=== PATIENT | female | born 1945 | race Caucasian/White ===

== ENCOUNTER 2018-12-08 08:58 | Outpatient (CLI) | payer MEDICARE, OTHER ==
[~2018-12-08] VITALS: Ht 162.6 cm; Wt 78.9 kg
[~2018-12-08 08:58] MED LIST: ALIR75PE INJ; FURO-150 PO; GEMF600T5 PO; HYDR-3972 PO; INSU500I SQ; INSU500V SQ; ISOS30TA9 PO; LEVO137T24 PO; LISI-600 PO; LOP25T PO; LORA1TAB PO; MULT-1179 PO; NITR0.4T51 SL; ONDA4TAB11 PO; PRAS10TA6 PO; PROB500T34 PO
[2018-12-08] MEDS ORDERED: metoprolol tartrate 1mg/ml inj IV PRN (10:20)
[2018-12-08] MEDS ORDERED: normal saline 500ml IV soln 500 ML IV ONE (10:20)
[2018-12-08] MEDS ORDERED: atropine 0.1mg/ml 10ml syringe IV PRN (10:20)
[2018-12-08] MEDS ORDERED: regadenoson 0.4mg/5ml syringe IV ONE (10:20)
[2018-12-08] MEDS ORDERED: aminophylline 250mg/10ml inj. IV PRN (10:20)
[2018-12-08] MEDS ORDERED: nitroGLYCERIN 0.4mg SUBLingual tab SL PRN (10:20)
[2018-12-08 11:16] VITALS: BP 138/69
[2018-12-08 11:23] VITALS: BP 142/65
[2018-12-08 11:24] VITALS: BP 157/64
[2018-12-08 11:25] VITALS: BP 147/66
[2018-12-08 11:26] VITALS: BP 166/66
[2018-12-08 11:27] VITALS: BP 166/55
== END 2018-12-08 23:59 | disposition home or self-care (01) ==
LOC: RAD 08:58
PROVIDERS: ATTEND Internal Medicine Cardiovascular Disease
DX: I25.810 Atherosclerosis of coronary artery bypass graft(s) without angina pectoris (principal); I10 Essential (primary) hypertension; J44.9 Chronic obstructive pulmonary disease, unspecified; E11.9 Type 2 diabetes mellitus without complications; Z95.1 Presence of aortocoronary bypass graft
CPT/HCPCS: 78452; 82948; 93017; A9500; J2785; J7040

== ENCOUNTER 2019-02-26 11:19 | Emergency (ER) | payer MEDICARE, OTHER ==
[~2019-02-26] VITALS: Ht 160 cm; Wt 77.7 kg
[2019-02-26 13:57] LABS: CLARITY,URINE CLOUDY (Clear); COLOR,URINE STRAW (Yellow); GLUCOSE, URINE 500 mg/dl (Neg); KETONES,URINE NEGATIVE (Neg); LEUKOCYTE ESTERASE ,URINE NEGATIVE (Neg); NITRITES, URINE NEGATIVE (Neg); OCCULT BLOOD,URINE SMALL (Neg); PH,URINE 5.5 (4.8-8.0); PROTEIN,URINE >=300 mg/dl (Neg); UROBILINOGEN,URINE 0.2 E.U/dL (0.2-1.0)
[2019-02-26] MEDS ORDERED: proCHLORperazine 10 MG/2 ml inj IV ONE (14:00)
[2019-02-26 14:03] LABS: UA COLLECTION TYPE CLN CATCH MIDSTREAM
[2019-02-26 14:04] LABS: BACTERIA,URINE FEW /HPF (Neg); HYALINE CASTS 0-3 /LPF (NEGATIVE); MUCUS STRANDS FEW /LPF (Neg); RBC,URINE 0-2 /HPF (0-2); RENAL CELLS, URINE FEW /HPF; SQUAMOUS EPITHELIAL CELL,UR MANY /LPF (FEW); WBC,URINE 0-4 /HPF (0-4)
[2019-02-26 14:30] LABS: BASOPHILS % (AUTO) 0.5 % (0-1); EOSINOPHILS % (AUTO) 0.6 % (0-6); HEMATOCRIT 37.8 % (35.0-45.0); HEMOGLOBIN 12.9 g/dl (12.0-16.0); LYMPHOCYTES # (AUTO) 2.3 X10'3 (1.1-4.8); LYMPHOCYTES % (AUTO) 28.2 % (21-51); MEAN CORPUSCULAR HEMOGLOBIN 31.5 PG (27.0-31.0); MEAN CORPUSCULAR HGB CONC 34.1 g/dL (33.0-36.5); MEAN CORPUSCULAR VOLUME 92.5 FL (78-98); MEAN PLATELET VOLUME 9.4 FL (7.4-10.4); MONOCYTES # (AUTO) 0.6 X10'3 (0-0.9); MONOCYTES % (AUTO) 7.4 % (2-12); NEUTROPHILS # (AUTO) 5.1 X10'3 (1.8-7.7); NEUTROPHILS % (AUTO) 63.3 % (42-75); PLATELET COUNT 257 X10'3 (140-440); RED BLOOD COUNT 4.09 X10'6 (4.20-5.60); RED CELL DISTRIBUTION WIDTH 14.2 % (11.5-14.5)
--- NOTE | 2019-02-26 14:30 | NUR ---
report off to zeferino rn for my lunch break; infomred patient is ready for discharge
[2019-02-26 14:48] LABS: ALANINE AMINOTRANSFERASE 17 U/L (12-78); ALBUMIN 3.2 G/DL (3.4-5.0); ALBUMIN/GLOBULIN RATIO 0.7 (1.1-1.5); ALKALINE PHOSPHATASE 109 IU/L (46-116); ANION GAP 9 (8-16); ASPARTATE AMINO TRANSFERASE 14 U/L (10-37); BILIRUBIN,TOTAL 0.2 MG/DL (0.1-1.0); BLOOD UREA NITROGEN 30 MG/DL (7-18); BUN/CREATININE RATIO 22.9 (6.6-38.0); CALCIUM 9.1 MG/DL (8.5-10.1); CHLORIDE 106 MMOL/L (99-107); CREATININE 1.31 MG/DL (0.40-0.90); GLUCOSE 270 MG/DL (70-104); POTASSIUM 4.2 MMOL/L (3.5-5.1); SODIUM 140 MMOL/L (135-145); TOTAL CARBON DIOXIDE 24.6 MMOL/L (24-32); TOTAL PROTEIN 7.8 G/DL (6.4-8.2); eGFR 40 ML/MIN
[2019-02-26 14:51] LABS: TROPONIN I < 0.04 NG/ML (0.0-0.05)
[2019-02-26 17:05] VITALS: BP 148/83
== END 2019-02-26 17:07 | disposition home or self-care (01) ==
LOC: ER 11:20
DX: R11.0 Nausea (principal); T36.8X5A Adverse effect of other systemic antibiotics, initial encounter; I25.10 Atherosclerotic heart disease of native coronary artery without angina pectoris; E78.00 Pure hypercholesterolemia, unspecified; I25.2 Old myocardial infarction; E05.90 Thyrotoxicosis, unspecified without thyrotoxic crisis or storm; G89.29 Other chronic pain; M10.9 Gout, unspecified; E11.42 Type 2 diabetes mellitus with diabetic polyneuropathy; Z86.73 Personal history of transient ischemic attack (TIA), and cerebral infarction without residual deficits; Z86.14 Personal history of Methicillin resistant Staphylococcus aureus infection; Z90.49 Acquired absence of other specified parts of digestive tract; Z95.1 Presence of aortocoronary bypass graft; Z90.710 Acquired absence of both cervix and uterus; Z88.0 Allergy status to penicillin; Z88.5 Allergy status to narcotic agent; Z88.1 Allergy status to other antibiotic agents; Z79.4 Long term (current) use of insulin; Z79.899 Other long term (current) drug therapy; Y92.9 Unspecified place or not applicable
CPT/HCPCS: 36415; 80053; 81001; 82948; 84484; 85025; 93005; 96374; 99284; J0780

== ENCOUNTER 2021-08-14 10:50 | Emergency (ER) | payer MEDICARE, OTHER ==
[~2021-08-14] VITALS: Ht 160 cm; Wt 82.3 kg
[~2021-08-14 10:50] MED LIST changes: -ALIR75PE INJ; +ASPI-1 PO; +CLOP75TA9 PO; +EMPA10TA PO; +ERGO50002 PO; -FURO-150 PO; -GEMF600T5 PO; +GEMF600T90 PO; +INSU100I40 SQ; -INSU500I SQ; -INSU500V SQ; +ISOS30TA84 PO; -ISOS30TA9 PO; -LISI-600 PO; +LISI20TA28 PO; -LOP25T PO; -LORA1TAB PO; +METO-539 PO; +OMEG1CAP61 PO; -ONDA4TAB11 PO; -PRAS10TA6 PO; -PROB500T34 PO
[2021-08-14 11:11] LABS: BASOPHILS # (AUTO) 0.1 X10'3 (0-0.2); BASOPHILS % (AUTO) 0.6 % (0-1); EOSINOPHILS # (AUTO) 0.1 X10'3 (0-0.9); EOSINOPHILS % (AUTO) 1.2 % (0-6); HEMATOCRIT 39.9 % (35.0-45.0); HEMOGLOBIN 13.1 g/dl (12.0-16.0); LYMPHOCYTES # (AUTO) 3.1 X10'3 (1.1-4.8); LYMPHOCYTES % (AUTO) 33.6 % (21-51); MEAN CORPUSCULAR HEMOGLOBIN 28.7 PG (27.0-31.0); MEAN CORPUSCULAR HGB CONC 32.8 g/dL (33.0-36.5); MEAN CORPUSCULAR VOLUME 87.5 FL (78-98); MEAN PLATELET VOLUME 8.9 FL (7.4-10.4); MONOCYTES # (AUTO) 0.8 X10'3 (0-0.9); MONOCYTES % (AUTO) 8.3 % (2-12); NEUTROPHILS # (AUTO) 5.3 X10'3 (1.8-7.7); NEUTROPHILS % (AUTO) 56.3 % (42-75); PLATELET COUNT 382 X10'3 (140-440); RED BLOOD COUNT 4.56 X10'6 (4.20-5.60); RED CELL DISTRIBUTION WIDTH 15.6 % (11.5-14.5); WHITE BLOOD COUNT 9.3 X10'3 (4.5-11.0)
[2021-08-14] MEDS ORDERED: fentaNYL/PF 50MCG/1 ML 2ML syringe IV ONE (11:15)
[2021-08-14] MEDS ORDERED: amiodarone 150mg/dext, iso-os 100 ML IV ONE (11:15)
[2021-08-14] MEDS ORDERED: heparin 10,000 units/1 ML INJ IV ONE (11:15)
[2021-08-14] MEDS ORDERED: etomidate 2mg/ml inj. IV ONE (11:15)
[2021-08-14] MEDS ORDERED: ondansetron/PF 4mg/2ml inj IV ONE ×2 (11:15)
[2021-08-14 11:20] LABS: D-DIMER 1.39 MG/L FEU (0-0.50)
[2021-08-14 11:24] LABS: ALANINE AMINOTRANSFERASE 20 U/L (12-78); ALBUMIN 3.2 G/DL (3.4-5.0); ALBUMIN/GLOBULIN RATIO 0.6 (1.1-1.5); ALKALINE PHOSPHATASE 107 IU/L (46-116); ANION GAP 13 (8-16); ASPARTATE AMINO TRANSFERASE 17 U/L (10-37); BILIRUBIN,TOTAL 0.2 MG/DL (0.1-1.0); BLOOD UREA NITROGEN 52 MG/DL (7-18); BUN/CREATININE RATIO 24.2 (6.6-38.0); CALCIUM 9.5 MG/DL (8.5-10.1); CHLORIDE 105 MMOL/L (99-107); CREATININE 2.15 MG/DL (0.40-0.90); GLUCOSE 134 MG/DL (70-104); SODIUM 142 MMOL/L (135-145); TOTAL CARBON DIOXIDE 23.9 MMOL/L (24-32); TOTAL PROTEIN 8.3 G/DL (6.4-8.2); eGFR 22 ML/MIN
--- NOTE | 2021-08-14 12:02 | NUR ---
PADS ON PT CHEST, CONSENT SIGNED. BS 116, PT WANTED CHECKED. HEPARIN GIVEN. RT PAGED. DR. GARCES WANTS TO WAIT 15 MINUTES.
[2021-08-14 12:25] LABS: MAGNESIUM 2.1 MG/DL (1.5-2.4)
[2021-08-14] MEDS ORDERED: amiodarone 50MG/ML inj IV ONE (12:40)
--- NOTE | 2021-08-14 12:40 | NUR ---
1233 pt cardioverted at 200 j 1234 pt cardioverted at 200 j 1235 pt cardioverted at 200 j pt remains in afib orders for amiodorone given
[2021-08-14] MEDS ORDERED: SOTA80TA PO (13:03)
[2021-08-14 14:16] VITALS: BP 151/65
== END 2021-08-14 14:28 | disposition home or self-care (01) ==
LOC: ER 10:50
DX: I48.91 Unspecified atrial fibrillation (principal); R06.02 Shortness of breath; N18.9 Chronic kidney disease, unspecified; E11.42 Type 2 diabetes mellitus with diabetic polyneuropathy; I25.10 Atherosclerotic heart disease of native coronary artery without angina pectoris; E78.00 Pure hypercholesterolemia, unspecified; I10 Essential (primary) hypertension; I25.2 Old myocardial infarction; G89.29 Other chronic pain; M10.9 Gout, unspecified; Z86.73 Personal history of transient ischemic attack (TIA), and cerebral infarction without residual deficits; Z86.718 Personal history of other venous thrombosis and embolism; Z86.14 Personal history of Methicillin resistant Staphylococcus aureus infection; Z90.49 Acquired absence of other specified parts of digestive tract; Z90.710 Acquired absence of both cervix and uterus; Z98.890 Other specified postprocedural states; Z85.9 Personal history of malignant neoplasm, unspecified; Z88.0 Allergy status to penicillin; Z88.8 Allergy status to other drugs, medicaments and biological substances; Z79.82 Long term (current) use of aspirin; Z79.4 Long term (current) use of insulin; Z79.899 Other long term (current) drug therapy
CPT/HCPCS: 36415; 71045; 80053; 82948; 83735; 83880; 84443; 84484; 85025; 85379; 85610; 92960; 93005; 94799; 96374; 96375; 99291; J0282; J1644; J2405; J3010; J3490; 94760

== ENCOUNTER 2021-10-31 08:48 | Outpatient (CLI) | payer MEDICARE, OTHER ==
[2021-10-31] VITALS (7 sets, daily range): BP systolic 113–139; BP diastolic 37–57
[~2021-10-31] VITALS: Ht 162.6 cm; Wt 80.7 kg
[~2021-10-31 08:48] MED LIST changes: +SOTA80TA PO
[2021-10-31] MEDS ORDERED: aminophylline 500mg/20ml vial IV PRN (09:20)
[2021-10-31] MEDS ORDERED: normal saline 500ml IV soln 500 ML IV ONE (09:20)
[2021-10-31] MEDS ORDERED: regadenoson 0.4mg/5ml syringe IV ONE (09:20)
[2021-10-31] MEDS ORDERED: nitroGLYCERIN 0.4mg SUBLingual tab SL PRN (09:20)
== END 2021-10-31 23:59 | disposition home or self-care (01) ==
LOC: RAD 08:48
PROVIDERS: ATTEND Internal Medicine Cardiovascular Disease
DX: I25.810 Atherosclerosis of coronary artery bypass graft(s) without angina pectoris (principal); Z95.1 Presence of aortocoronary bypass graft
CPT/HCPCS: 78452; 93017; A9500; J0280; J2785; J7040

== ENCOUNTER 2022-11-09 10:36 | Emergency (ER) | payer MEDICARE, OTHER ==
[~2022-11-09] VITALS: Ht 160 cm; Wt 82.7 kg
[~2022-11-09 10:36] MED LIST changes: +DOXY-356 PO; +HYDR-3973 PO; +METR-159 PO
[2022-11-09 10:42] VITALS: BP 141/64; PULSE 81; RESP 18; TEMP 97.7; O2SAT 97
--- NOTE | 2022-11-09 12:37 | NUR ---
Wound on her buttock was cleansed with NS, pat tried with gauze then covered with island dressing with tegaderm on the top to reinforce it. Per patient, she has appointment at wound care center tomorrow and that she would follow up tomorrow
== END 2022-11-09 13:01 | disposition home or self-care (01) ==
LOC: ER 10:37
DX: Z48.01 Encounter for change or removal of surgical wound dressing (principal); E78.00 Pure hypercholesterolemia, unspecified; I10 Essential (primary) hypertension; E11.9 Type 2 diabetes mellitus without complications; Z88.0 Allergy status to penicillin; Z88.8 Allergy status to other drugs, medicaments and biological substances; Z79.82 Long term (current) use of aspirin; Z79.899 Other long term (current) drug therapy; Z79.84 Long term (current) use of oral hypoglycemic drugs; Z90.49 Acquired absence of other specified parts of digestive tract; Z90.710 Acquired absence of both cervix and uterus
CPT/HCPCS: 99282; A6258; A6449

== ENCOUNTER → 2023-07-28 | Outpatient (CLI) | payer MEDICARE, OTHER ==
[~2023-07-28] MED LIST changes: -DOXY-356 PO; -HYDR-3973 PO; -METR-159 PO
== END | disposition home or self-care (01) ==
LOC: RAD 08:30
PROVIDERS: ATTEND Family Medicine
DX: M47.816 Spondylosis without myelopathy or radiculopathy, lumbar region (principal); M48.061 Spinal stenosis, lumbar region without neurogenic claudication; M25.78 Osteophyte, vertebrae; M16.11 Unilateral primary osteoarthritis, right hip; I70.8 Atherosclerosis of other arteries; M54.50 Low back pain, unspecified; M25.551 Pain in right hip
CPT/HCPCS: 72100; 72220; 73502

== ENCOUNTER 2024-05-31 12:23 | Inpatient (IN) | payer MEDICARE, OTHER ==
[~2024-05-31] VITALS: Ht 162.6 cm; Wt 77.0 kg
[2024-05-31] MEDS: normal saline 1000ML IV soln IV ONE (12:53)
[2024-05-31 13:07] LABS: BILIRUBIN,URINE NEGATIVE (Neg); CLARITY,URINE CLEAR (Clear); COLOR,URINE YELLOW (Yellow); GLUCOSE, URINE NEGATIVE (Neg); KETONES,URINE NEGATIVE (Neg); LEUKOCYTE ESTERASE ,URINE MODERATE (Neg); NITRITES, URINE NEGATIVE (Neg); OCCULT BLOOD,URINE MODERATE (Neg); PH,URINE 5.5 (4.8-8.0); PROTEIN,URINE 100 mg/dl (Neg); UROBILINOGEN,URINE 0.2 E.U/dL (0.2-1.0)
[2024-05-31 13:07] LABS: BASOPHILS % (AUTO) 0 % (0-1); EOSINOPHILS % (AUTO) 0.1 % (0-6); HEMATOCRIT 38.2 % (35.0-45.0); HEMOGLOBIN 12.5 g/dl (12.0-16.0); LYMPHOCYTES # (AUTO) 2.2 X10'3 (1.1-4.8); LYMPHOCYTES % (AUTO) 11.2 % (21-51); MEAN CORPUSCULAR HEMOGLOBIN 30.2 PG (27.0-31.0); MEAN CORPUSCULAR HGB CONC 32.7 g/dL (33.0-36.5); MEAN CORPUSCULAR VOLUME 92.2 FL (78-98); MEAN PLATELET VOLUME 8.9 FL (7.4-10.4); MONOCYTES # (AUTO) 0.4 X10'3 (0-0.9); MONOCYTES % (AUTO) 2.3 % (2-12); NEUTROPHILS % (AUTO) 86.4 % (42-75); PLATELET COUNT 490 X10'3 (140-440); RED BLOOD COUNT 4.14 X10'6 (4.20-5.60); RED CELL DISTRIBUTION WIDTH 14.1 % (11.5-14.5); WHITE BLOOD COUNT 19.7 X10'3 (4.5-11.0)
[2024-05-31 13:09] LABS: UA COLLECTION TYPE STRAIGHT CATH
[2024-05-31 13:14] LABS: BACTERIA,URINE 4+ /HPF (Neg); SQUAMOUS EPITHELIAL CELL,UR FEW /LPF (FEW); WBC CLUMPS,URINE FEW /HPF (NEGATIVE); WBC,URINE TNTC /HPF (0-4)
[2024-05-31 13:28] LABS: ALBUMIN 2.1 G/DL (3.4-5.0); ANION GAP 19 (8-16); BLOOD UREA NITROGEN 112 MG/DL (7-18); BUN/CREATININE RATIO 18.9 (10.0-20.0); CALCIUM 10.1 MG/DL (8.5-10.1); CHLORIDE 104 MMOL/L (99-107); CREATININE 5.92 MG/DL (0.40-0.90); GLUCOSE 105 MG/DL (70-104); MAGNESIUM 2.1 MG/DL (1.5-2.4); SODIUM 139 MMOL/L (135-145); TOTAL CARBON DIOXIDE 16.1 MMOL/L (24-32); eCRCL 7 ML/MIN; eGFR 7 ML/MIN
[2024-05-31] MEDS: CefTRIAXone 2gm/D5W 50ml BAG 50 ML IV ONE (14:05)
[2024-05-31] MEDS ORDERED: LEVO150T8 PO (14:35)
[2024-05-31] MEDS: azithromycin/NS 500mg/250ml 250 ML IV ONE (14:45)
[2024-05-31] MEDS ORDERED: magnesium sulf-water 4G/100mL 100 ML IV PRN (15:20)
[2024-05-31] MEDS ORDERED: potassium Cl 20 mEq SR tablet PO PRN (15:20)
[2024-05-31] MEDS ORDERED: potassium Cl 40MEQ/1/2NS 520ml 520 ML IV PRN (15:20)
[2024-05-31] MEDS ORDERED: normal saline 1000ml 1,000 ML IV SCH (15:20)
[2024-05-31] MEDS ORDERED: acetaminophen 325mg tablet PO PRN (15:20)
[2024-05-31] MEDS ORDERED: magnesium Cl slow-release 64mg tablet PO PRN (15:20)
[2024-05-31] MEDS ORDERED: mag hydrox/Alum hydrox/simeth 30ml oral suspension PO PRN (15:20)
[2024-05-31] MEDS ORDERED: magnesium sulf-water 2g/50mL 50 ML IV PRN (15:20)
[2024-05-31] MEDS: normal saline 1000ML IV soln IVB ONE (16:02)
[2024-05-31] MEDS: ringers solution, lacted 1,000 ML IV ONE (16:02)
[2024-05-31] MEDS ORDERED: dextrose 50%-water 50ml dispensing syringe IV PRN ×2 (16:05)
[2024-05-31] MEDS ORDERED: DEXTROSE 15 GM of carb/4 tabs (each vial/BOTTLE has 4 tablets) PO PRN ×2 (16:05)
[2024-05-31] MEDS ORDERED: glucagon, human recombinant 1mg kit SUBCUT PRN (16:05)
[2024-05-31 16:29] LABS: HEMOGLOBIN A1C 7.6 % (4.5-6.2)
[2024-05-31 16:34] LABS: PHOSPHORUS 4.4 MG/DL (2.3-4.5); THYROID STIMULATING HORMONE 0.21 ulU/ml (0.34-4.50)
[2024-05-31] MEDS: tuberculin, purif. prot. deriv. 5 units/0.1ml ID ONE (16:42)
[2024-05-31] MEDS: INSULIN LISPRO 100 UNIT/ML INSULN.PEN MULTI-DOSE SQ SCH (17:00)
[2024-05-31] MEDS: sodium bicarbonate (8.4%) inj. 100 MEQ in dextrose 5%-water 1,000 ML IV SCH (17:27)
[2024-05-31 18:43] LABS: INR 1.2 INR; PROTHROMBIN TIME 12.3 SECONDS (9.0-12.0)
[2024-05-31] MEDS ORDERED: heparin, porcine 5000 units/ml vial SQ SCH (20:00)
[2024-05-31] MEDS: K and/or MAG REPLACEMENT MC SCH (20:00)
[2024-05-31] MEDS: HYDROcodone/acetaminophen 5mg/325mg tablet PO ONE (20:29)
[2024-05-31] MEDS: warfarin 5mg tablet PO ONE (21:00)
[2024-06-01 03:23] LABS: BASOPHILS % (AUTO) 0.1 % (0-1); EOSINOPHILS % (AUTO) 0.1 % (0-6); HEMATOCRIT 35.4 % (35.0-45.0); HEMOGLOBIN 11.5 g/dl (12.0-16.0); LYMPHOCYTES # (AUTO) 1.7 X10'3 (1.1-4.8); LYMPHOCYTES % (AUTO) 10.9 % (21-51); MEAN CORPUSCULAR HEMOGLOBIN 29.9 PG (27.0-31.0); MEAN CORPUSCULAR HGB CONC 32.4 g/dL (33.0-36.5); MEAN CORPUSCULAR VOLUME 92.2 FL (78-98); MONOCYTES # (AUTO) 0.9 X10'3 (0-0.9); MONOCYTES % (AUTO) 5.5 % (2-12); NEUTROPHILS # (AUTO) 13.3 X10'3 (1.8-7.7); NEUTROPHILS % (AUTO) 83.4 % (42-75); PLATELET COUNT 430 X10'3 (140-440); RED BLOOD COUNT 3.84 X10'6 (4.20-5.60); RED CELL DISTRIBUTION WIDTH 14.3 % (11.5-14.5)
[2024-06-01 03:35] LABS: INR 1.2 INR; PROTHROMBIN TIME 12.1 SECONDS (9.0-12.0)
[2024-06-01 03:51] LABS: ALANINE AMINOTRANSFERASE 12 U/L (12-78); ALKALINE PHOSPHATASE 117 IU/L (46-116); ANION GAP 17 (8-16); ASPARTATE AMINO TRANSFERASE 10 U/L (10-37); BILIRUBIN,TOTAL 0.4 MG/DL (0.1-1.0); BLOOD UREA NITROGEN 102 MG/DL (7-18); BUN/CREATININE RATIO 21.5 (10.0-20.0); CHLORIDE 108 MMOL/L (99-107); CREATININE 4.74 MG/DL (0.40-0.90); GLUCOSE 299 MG/DL (70-104); POTASSIUM 4.4 MMOL/L (3.5-5.1); SODIUM 143 MMOL/L (135-145); TOTAL CARBON DIOXIDE 17.9 MMOL/L (24-32); TOTAL PROTEIN 7.6 G/DL (6.4-8.2); eCRCL 9 ML/MIN; eGFR 9 ML/MIN
[2024-06-01 04:00] LABS: ALBUMIN 1.8 G/DL (3.4-5.0); ALBUMIN/GLOBULIN RATIO 0.3 (1.1-1.5)
[2024-06-01 07:00] VITALS: RESP 20
[2024-06-01] MEDS: ondansetron/PF 4mg/2ml inj IV PRN (07:01)
[2024-06-01] MEDS: CefTRIAXone/D5W-Rocephin 1gm 50 ML IV SCH (07:55)
[2024-06-01] MEDS: azithromycin/NS 500mg/250ml 250 ML IV SCH (08:23)
[2024-06-01] MEDS: metoprolol succinate 25mg (24-HOUR) SR. Tablet PO SCH (08:53)
[2024-06-01] MEDS: amLODIPine 5mg tablet PO SCH (08:54)
[2024-06-01 11:00] VITALS: BP 101/54; PULSE 98; RESP 17; TEMP 97.7; O2SAT 97
[2024-06-01] MEDS: LidoCAINE 2% Topical Jelly 11mL syringe (UROJET) TOP ONE (12:41)
[2024-06-01 15:00] VITALS: BP 149/94; PULSE 68; RESP 19; TEMP 97.7; O2SAT 97
[2024-06-01] MEDS: HYDROcodone/acetaminophen 5mg/325mg tablet PO PRN (16:58)
[2024-06-01 18:00] VITALS: BP 169/74; PULSE 61; RESP 23; TEMP 97.8; O2SAT 92
[2024-06-01 20:00] VITALS: RESP 20
[2024-06-01] MEDS: heparin, porcine 5000 units/ml vial SQ SCH (21:22)
[2024-06-01] MEDS: insulin glargine (Lantus) pen - multi-dose SQ SCH (21:27)
[2024-06-02] VITALS (7 sets, daily range): BP systolic 120–172; BP diastolic 47–81; PULSE 64–101; RESP 14–18; TEMP 96.9–98.1; O2SAT 92–98
[2024-06-02] MEDS: morphine 4 MG/ML inj SYRINge IV PRN (03:16)
[2024-06-02 07:59] LABS: BASOPHILS % (AUTO) 0.3 % (0-1); EOSINOPHILS % (AUTO) 0 % (0-6); HEMATOCRIT 30.1 % (35.0-45.0); HEMOGLOBIN 9.9 g/dl (12.0-16.0); LYMPHOCYTES # (AUTO) 1.7 X10'3 (1.1-4.8); MEAN CORPUSCULAR HEMOGLOBIN 30.2 PG (27.0-31.0); MEAN CORPUSCULAR HGB CONC 32.9 g/dL (33.0-36.5); MEAN CORPUSCULAR VOLUME 91.7 FL (78-98); MONOCYTES % (AUTO) 8.1 % (2-12); NEUTROPHILS # (AUTO) 10.1 X10'3 (1.8-7.7); NEUTROPHILS % (AUTO) 78.6 % (42-75); PLATELET COUNT 404 X10'3 (140-440); RED BLOOD COUNT 3.28 X10'6 (4.20-5.60); RED CELL DISTRIBUTION WIDTH 14.2 % (11.5-14.5); WHITE BLOOD COUNT 12.9 X10'3 (4.5-11.0)
[2024-06-02 08:17] LABS: ALANINE AMINOTRANSFERASE 11 U/L (12-78); ALBUMIN 1.7 G/DL (3.4-5.0); ALBUMIN/GLOBULIN RATIO 0.3 (1.1-1.5); ALKALINE PHOSPHATASE 128 IU/L (46-116); ANION GAP 12 (8-16); ASPARTATE AMINO TRANSFERASE 26 U/L (10-37); BILIRUBIN,TOTAL 0.3 MG/DL (0.1-1.0); BLOOD UREA NITROGEN 77 MG/DL (7-18); BUN/CREATININE RATIO 18.7 (10.0-20.0); CALCIUM 8.8 MG/DL (8.5-10.1); CHLORIDE 102 MMOL/L (99-107); CREATININE 4.11 MG/DL (0.40-0.90); FREE T4 (FREE THYROXINE) 0.95 NG/DL (0.73-1.40); INR 1.2 INR; POTASSIUM 3.5 MMOL/L (3.5-5.1); PROTHROMBIN TIME 12.4 SECONDS (9.0-12.0); SODIUM 139 MMOL/L (135-145); TOTAL CARBON DIOXIDE 25.5 MMOL/L (24-32); TOTAL PROTEIN 7.4 G/DL (6.4-8.2); eCRCL 10 ML/MIN; eGFR 11 ML/MIN
[2024-06-02 08:28] LABS: GLUCOSE 469 MG/DL (70-104)
[2024-06-02] MEDS: clopidogrel 75mg tablet PO SCH (08:41)
[2024-06-02] MEDS: levoTHYROXINE 25mcg tablet PO SCH (08:42)
[2024-06-02] MEDS: levoTHYROXINE 125mcg tablet PO SCH (08:42)
[2024-06-02] MEDS: normal saline 1000ml 1,000 ML IV SCH (11:48)
[2024-06-02] MEDS: lactose-reduced food (Ensure Enlive) - 237ml bottle PO SCH (13:00)
[2024-06-02] MEDS: JUVEN Smoothie Arginine/Glut./Ca2+Bmb (Juven 19.3pkt) 240ml cup PO SCH (18:00)
[2024-06-03] VITALS (7 sets, daily range): BP systolic 125–179; BP diastolic 40–80; PULSE 60–112; RESP 14–22; TEMP 97.6–97.8; O2SAT 94–96
[2024-06-03] MEDS: amLODIPine 5mg tablet PO ONE (01:08)
[2024-06-03 07:36] LABS: BASOPHILS % (AUTO) 0.1 % (0-1); EOSINOPHILS % (AUTO) 0 % (0-6); HEMATOCRIT 30.4 % (35.0-45.0); HEMOGLOBIN 10.1 g/dl (12.0-16.0); LYMPHOCYTES # (AUTO) 2.1 X10'3 (1.1-4.8); LYMPHOCYTES % (AUTO) 12.8 % (21-51); MEAN CORPUSCULAR HEMOGLOBIN 30.4 PG (27.0-31.0); MEAN CORPUSCULAR HGB CONC 33.1 g/dL (33.0-36.5); MEAN PLATELET VOLUME 8.7 FL (7.4-10.4); MONOCYTES # (AUTO) 1.1 X10'3 (0-0.9); MONOCYTES % (AUTO) 6.7 % (2-12); NEUTROPHILS # (AUTO) 13.1 X10'3 (1.8-7.7); NEUTROPHILS % (AUTO) 80.4 % (42-75); PLATELET COUNT 359 X10'3 (140-440); RED BLOOD COUNT 3.31 X10'6 (4.20-5.60); RED CELL DISTRIBUTION WIDTH 14.3 % (11.5-14.5); WHITE BLOOD COUNT 16.3 X10'3 (4.5-11.0)
[2024-06-03 07:50] LABS: INR 1.2 INR; PROTHROMBIN TIME 12.6 SECONDS (9.0-12.0)
[2024-06-03] MEDS ORDERED: dextrose 50%-water 50ml dispensing syringe IV PRN ×2 (07:50)
[2024-06-03] MEDS ORDERED: glucagon, human recombinant 1mg kit SUBCUT PRN (07:50)
[2024-06-03] MEDS ORDERED: DEXTROSE 15 GM of carb/4 tabs (each vial/BOTTLE has 4 tablets) PO PRN ×2 (07:50)
[2024-06-03 08:22] LABS: ALANINE AMINOTRANSFERASE 16 U/L (12-78); ALBUMIN 1.7 G/DL (3.4-5.0); ALBUMIN/GLOBULIN RATIO 0.3 (1.1-1.5); ALKALINE PHOSPHATASE 128 IU/L (46-116); ANION GAP 11 (8-16); ASPARTATE AMINO TRANSFERASE 31 U/L (10-37); BILIRUBIN,TOTAL 0.3 MG/DL (0.1-1.0); BLOOD UREA NITROGEN 68 MG/DL (7-18); BUN/CREATININE RATIO 20.3 (10.0-20.0); CHLORIDE 104 MMOL/L (99-107); CREATININE 3.35 MG/DL (0.40-0.90); GLUCOSE 335 MG/DL (70-104); POTASSIUM 3.3 MMOL/L (3.5-5.1); SODIUM 141 MMOL/L (135-145); TOTAL CARBON DIOXIDE 26.2 MMOL/L (24-32); TOTAL PROTEIN 7.4 G/DL (6.4-8.2); eCRCL 12 ML/MIN; eGFR 13 ML/MIN
[2024-06-03] MEDS: INSULIN LISPRO 100 UNIT/ML INSULN.PEN MULTI-DOSE SQ SCH ×2 (08:34→09:00)
[2024-06-03] MEDS: carvedilol 6.25mg tablet PO SCH (08:47)
[2024-06-03] MEDS: potassium Cl 20 mEq SR tablet PO PRN ×2 (13:01→17:15)
[2024-06-03] MEDS ORDERED: magnesium sulf-water 4G/100mL 100 ML IV PRN (17:00)
[2024-06-03] MEDS ORDERED: potassium Cl 20 mEq SR tablet PO PRN (17:00)
[2024-06-03] MEDS ORDERED: potassium Cl 40MEQ/1/2NS 520ml 520 ML IV PRN (17:00)
[2024-06-03] MEDS ORDERED: magnesium sulf-water 2g/50mL 50 ML IV PRN (17:00)
[2024-06-03] MEDS ORDERED: magnesium Cl slow-release 64mg tablet PO PRN (17:00)
[2024-06-03] MEDS: insulin glargine (Lantus) pen - multi-dose SQ SCH (21:46)
[2024-06-03] MEDS: guaiFENesin ER 600mg tablet PO SCH (21:47)
[2024-06-04 02:00] VITALS: BP 134/74; PULSE 80; RESP 15; TEMP 97.8; O2SAT 94
[2024-06-04 07:12] LABS: BASOPHILS % (AUTO) 0.1 % (0-1); EOSINOPHILS % (AUTO) 0.1 % (0-6); HEMATOCRIT 30.1 % (35.0-45.0); HEMOGLOBIN 9.5 g/dl (12.0-16.0); LYMPHOCYTES # (AUTO) 1.7 X10'3 (1.1-4.8); LYMPHOCYTES % (AUTO) 9.4 % (21-51); MEAN CORPUSCULAR HEMOGLOBIN 29.9 PG (27.0-31.0); MEAN CORPUSCULAR HGB CONC 31.4 g/dL (33.0-36.5); MEAN CORPUSCULAR VOLUME 95.2 FL (78-98); MEAN PLATELET VOLUME 8.8 FL (7.4-10.4); MONOCYTES # (AUTO) 0.8 X10'3 (0-0.9); MONOCYTES % (AUTO) 4.7 % (2-12); NEUTROPHILS # (AUTO) 15.1 X10'3 (1.8-7.7); NEUTROPHILS % (AUTO) 85.7 % (42-75); PLATELET COUNT 316 X10'3 (140-440); RED BLOOD COUNT 3.17 X10'6 (4.20-5.60); RED CELL DISTRIBUTION WIDTH 14.1 % (11.5-14.5); WHITE BLOOD COUNT 17.7 X10'3 (4.5-11.0)
[2024-06-04 07:22] LABS: INR 1.3 INR
[2024-06-04 07:34] LABS: ALANINE AMINOTRANSFERASE 10 U/L (12-78); ALBUMIN 1.4 G/DL (3.4-5.0); ALBUMIN/GLOBULIN RATIO 0.3 (1.1-1.5); ALKALINE PHOSPHATASE 103 IU/L (46-116); ANION GAP 10 (8-16); ASPARTATE AMINO TRANSFERASE 22 U/L (10-37); BILIRUBIN,TOTAL 0.2 MG/DL (0.1-1.0); BLOOD UREA NITROGEN 65 MG/DL (7-18); BUN/CREATININE RATIO 23.9 (10.0-20.0); CALCIUM 8.9 MG/DL (8.5-10.1); CHLORIDE 106 MMOL/L (99-107); CREATININE 2.72 MG/DL (0.40-0.90); GLUCOSE 313 MG/DL (70-104); POTASSIUM 3.7 MMOL/L (3.5-5.1); SODIUM 141 MMOL/L (135-145); TOTAL CARBON DIOXIDE 24.9 MMOL/L (24-32); eCRCL 15 ML/MIN; eGFR 17 ML/MIN
[2024-06-04 08:40] VITALS: RESP 21; O2SAT 95
[2024-06-04] MEDS: metroNIDAZOLE-Flagyl 500mg/NS 100 ML IV SCH (09:08)
[2024-06-04 10:25] VITALS: BP 136/57; PULSE 70; RESP 22; TEMP 97.2; O2SAT 94
[2024-06-04] MEDS: predniSONE 20 mg tablet PO ONE (10:58)
[2024-06-04 11:14] LABS: URIC ACID 9.7 MG/DL (2.5-6.2)
[2024-06-04 15:00] VITALS: BP 141/48; PULSE 73; RESP 14; TEMP 97.2; O2SAT 92
[2024-06-04] MEDS: magnesium hydroxide 30ml (MOM) UD suspension PO PRN (17:59)
[2024-06-04 18:00] VITALS: BP 141/51; PULSE 67; RESP 21; TEMP 97.7; O2SAT 94
[2024-06-04] MEDS: INSULIN LISPRO 100 UNIT/ML INSULN.PEN MULTI-DOSE SQ SCH (18:00)
[2024-06-04] MEDS: insulin glargine (Lantus) pen - multi-dose SQ SCH (21:49)
[2024-06-04 22:00] VITALS: BP 123/69; PULSE 64; RESP 16; TEMP 97.7; O2SAT 94
[2024-06-05 02:00] VITALS: BP 149/59; PULSE 60; RESP 20; TEMP 97.7; O2SAT 96
[2024-06-05 06:00] VITALS: BP 131/56; PULSE 66; RESP 16; TEMP 97.4; O2SAT 91
[2024-06-05 07:08] LABS: BASOPHILS % (AUTO) 0.1 % (0-1); EOSINOPHILS % (AUTO) 0 % (0-6); HEMATOCRIT 30.3 % (35.0-45.0); HEMOGLOBIN 9.9 g/dl (12.0-16.0); LYMPHOCYTES # (AUTO) 1.4 X10'3 (1.1-4.8); LYMPHOCYTES % (AUTO) 7.3 % (21-51); MEAN CORPUSCULAR HEMOGLOBIN 30.1 PG (27.0-31.0); MEAN CORPUSCULAR HGB CONC 32.5 g/dL (33.0-36.5); MEAN CORPUSCULAR VOLUME 92.5 FL (78-98); MEAN PLATELET VOLUME 8.9 FL (7.4-10.4); MONOCYTES # (AUTO) 0.5 X10'3 (0-0.9); MONOCYTES % (AUTO) 2.9 % (2-12); NEUTROPHILS # (AUTO) 17.1 X10'3 (1.8-7.7); NEUTROPHILS % (AUTO) 89.7 % (42-75); PLATELET COUNT 329 X10'3 (140-440); RED BLOOD COUNT 3.27 X10'6 (4.20-5.60); RED CELL DISTRIBUTION WIDTH 13.5 % (11.5-14.5); WHITE BLOOD COUNT 19.1 X10'3 (4.5-11.0)
[2024-06-05 07:15] LABS: INR 1.2 INR; PROTHROMBIN TIME 12.8 SECONDS (9.0-12.0)
[2024-06-05 07:27] LABS: ALANINE AMINOTRANSFERASE 16 U/L (12-78); ALBUMIN 1.5 G/DL (3.4-5.0); ALBUMIN/GLOBULIN RATIO 0.3 (1.1-1.5); ALKALINE PHOSPHATASE 96 IU/L (46-116); ANION GAP 10 (8-16); ASPARTATE AMINO TRANSFERASE 9 U/L (10-37); BILIRUBIN,TOTAL 0.3 MG/DL (0.1-1.0); BLOOD UREA NITROGEN 75 MG/DL (7-18); BUN/CREATININE RATIO 29.3 (10.0-20.0); CALCIUM 9.2 MG/DL (8.5-10.1); CHLORIDE 105 MMOL/L (99-107); CREATININE 2.56 MG/DL (0.40-0.90); GLUCOSE 313 MG/DL (70-104); POTASSIUM 3.9 MMOL/L (3.5-5.1); SODIUM 143 MMOL/L (135-145); TOTAL CARBON DIOXIDE 28.5 MMOL/L (24-32); TOTAL PROTEIN 7.1 G/DL (6.4-8.2); eCRCL 16 ML/MIN; eGFR 18 ML/MIN
[2024-06-05] MEDS: MEROPENEM 1GM/NACL 50ML IVPB 50 ML IV SCH (10:10)
[2024-06-05 15:00] VITALS: BP 106/49; PULSE 71; RESP 14; TEMP 97.9; O2SAT 92
[2024-06-05 18:00] VITALS: BP 110/84; PULSE 70; RESP 18; TEMP 97.8; O2SAT 95
[2024-06-05 20:00] VITALS: RESP 19; O2SAT 95
[2024-06-05] MEDS: MEROPENEM 500MG/50ML-NS IVPB 50 ML IV SCH (22:07)
[2024-06-06] VITALS (7 sets, daily range): BP systolic 122–160; BP diastolic 34–66; PULSE 59–70; RESP 14–18; TEMP 97.2–98.5; O2SAT 94–98
[2024-06-06 07:50] LABS: ANION GAP 9 (8-16); BLOOD UREA NITROGEN 78 MG/DL (7-18); BUN/CREATININE RATIO 33.5 (10.0-20.0); CALCIUM 9.2 MG/DL (8.5-10.1); CHLORIDE 105 MMOL/L (99-107); CREATININE 2.33 MG/DL (0.40-0.90); GLUCOSE 185 MG/DL (70-104); POTASSIUM 3.2 MMOL/L (3.5-5.1); SODIUM 140 MMOL/L (135-145); TOTAL CARBON DIOXIDE 26.1 MMOL/L (24-32); eCRCL 17 ML/MIN; eGFR 20 ML/MIN
[2024-06-06] MEDS: gemfibrozil 600mg tablet PO SCH (08:02)
[2024-06-06] MEDS: isosorbide mononitrate 30mg tab.SR.24H PO SCH (08:04)
[2024-06-06 08:06] LABS: BASOPHILS % (AUTO) 0.1 % (0-1); EOSINOPHILS % (AUTO) 0.1 % (0-6); HEMATOCRIT 33.7 % (35.0-45.0); HEMOGLOBIN 10.8 g/dl (12.0-16.0); LYMPHOCYTES # (AUTO) 2.2 X10'3 (1.1-4.8); LYMPHOCYTES % (AUTO) 12.4 % (21-51); MEAN CORPUSCULAR HEMOGLOBIN 29.8 PG (27.0-31.0); MEAN CORPUSCULAR HGB CONC 32.1 g/dL (33.0-36.5); MEAN CORPUSCULAR VOLUME 92.9 FL (78-98); MEAN PLATELET VOLUME 9.1 FL (7.4-10.4); MONOCYTES # (AUTO) 0.8 X10'3 (0-0.9); MONOCYTES % (AUTO) 4.3 % (2-12); NEUTROPHILS % (AUTO) 83.1 % (42-75); PLATELET COUNT 349 X10'3 (140-440); RED BLOOD COUNT 3.63 X10'6 (4.20-5.60); RED CELL DISTRIBUTION WIDTH 14.2 % (11.5-14.5); WHITE BLOOD COUNT 18.1 X10'3 (4.5-11.0)
[2024-06-06 08:20] LABS: ALBUMIN 1.5 G/DL (3.4-5.0)
[2024-06-06 11:05] LABS: HDL CHOLESTEROL 24 MG/DL (35-60); LDL CHOLESTEROL 32 MG/DL (50-100); TRIGLYCERIDES 177 MG/DL (20-135)
[2024-06-06] MEDS: prednisone 10mg tablet PO ONE (11:15)
[2024-06-06 12:03] LABS: CHOL/HDL RATIO 3.3 (0.00-4.99); CHOLESTEROL 79 MG/DL (0-200)
[2024-06-07 02:00] VITALS: BP 150/47; PULSE 66; RESP 16; TEMP 97.2; O2SAT 92
[2024-06-07 06:00] VITALS: BP 149/51; PULSE 62; RESP 19; TEMP 96.7; O2SAT 98
[2024-06-07 07:45] LABS: BASOPHILS % (AUTO) 0.1 % (0-1); EOSINOPHILS % (AUTO) 0.1 % (0-6); HEMATOCRIT 31.4 % (35.0-45.0); HEMOGLOBIN 10.1 g/dl (12.0-16.0); LYMPHOCYTES # (AUTO) 1.8 X10'3 (1.1-4.8); LYMPHOCYTES % (AUTO) 10.7 % (21-51); MEAN CORPUSCULAR HEMOGLOBIN 29.8 PG (27.0-31.0); MEAN CORPUSCULAR HGB CONC 32.3 g/dL (33.0-36.5); MEAN CORPUSCULAR VOLUME 92.4 FL (78-98); MEAN PLATELET VOLUME 9.1 FL (7.4-10.4); MONOCYTES # (AUTO) 0.6 X10'3 (0-0.9); MONOCYTES % (AUTO) 3.7 % (2-12); NEUTROPHILS # (AUTO) 14.5 X10'3 (1.8-7.7); NEUTROPHILS % (AUTO) 85.4 % (42-75); PLATELET COUNT 318 X10'3 (140-440); RED CELL DISTRIBUTION WIDTH 13.6 % (11.5-14.5); WHITE BLOOD COUNT 16.9 X10'3 (4.5-11.0)
[2024-06-07] MEDS ORDERED: LANTUS SQ (09:59)
[2024-06-07] MEDS ORDERED: MERO500V24 IV (09:59)
[2024-06-07] MEDS ORDERED: NOR5T PO (09:59)
[2024-06-07 11:00] VITALS: BP 116/45; PULSE 64; RESP 20; TEMP 98.1; O2SAT 95
[2024-06-07] MEDS: predniSONE 20 mg tablet PO SCH (12:07)
[2024-06-07 15:33] LABS: TOTAL PROTEIN 24HR,URINE 1064.7 MG/24HR (28-141)
[2024-06-07 15:34] LABS: UREA NITROGEN 24HR,URINE 5.6 GM/24HR (7-20)
[2024-06-08] MEDS ORDERED: predniSONE 20 mg tablet PO SCH (08:30)
== END 2024-06-07 14:55 | DRG 871 ==
LOC: ER 12:24 → ED HOLD 15:26 → PCU 3S 06-01 09:47
PROVIDERS: ADMIT Internal Medicine; ATTEND Internal Medicine
PROC: BW251ZZ Computerized Tomography (CT Scan) of Chest, Abdomen and Pelvis using Low Osmolar Contrast (ICD-10-PCS; principal; 2024-05-31)
PROC: 05HC33Z Insertion of Infusion Device into Left Basilic Vein, Percutaneous Approach (ICD-10-PCS; 2024-06-07)
PROC: B54MZZA Ultrasonography of Right Upper Extremity Veins, Guidance (ICD-10-PCS; 2024-06-07)
DX: A41.9 Sepsis, unspecified organism (principal); G93.41 Metabolic encephalopathy; N17.0 Acute kidney failure with tubular necrosis; J69.0 Pneumonitis due to inhalation of food and vomit; J18.9 Pneumonia, unspecified organism; N39.0 Urinary tract infection, site not specified; I13.0 Hypertensive heart and chronic kidney disease with heart failure and stage 1 through stage 4 chronic kidney disease, or unspecified chronic kidney disease; I69.351 Hemiplegia and hemiparesis following cerebral infarction affecting right dominant side; I50.32 Chronic diastolic (congestive) heart failure; J44.0 Chronic obstructive pulmonary disease with (acute) lower respiratory infection; N18.9 Chronic kidney disease, unspecified; Z20.822 Contact with and (suspected) exposure to COVID-19; I48.91 Unspecified atrial fibrillation; I27.20 Pulmonary hypertension, unspecified; E11.22 Type 2 diabetes mellitus with diabetic chronic kidney disease; E78.00 Pure hypercholesterolemia, unspecified; E11.42 Type 2 diabetes mellitus with diabetic polyneuropathy; G47.30 Sleep apnea, unspecified; I25.10 Atherosclerotic heart disease of native coronary artery without angina pectoris; E03.9 Hypothyroidism, unspecified; I25.2 Old myocardial infarction; Z88.0 Allergy status to penicillin; Z95.1 Presence of aortocoronary bypass graft; Z90.710 Acquired absence of both cervix and uterus; Z79.01 Long term (current) use of anticoagulants; E86.0 Dehydration; Z82.3 Family history of stroke
CPT/HCPCS: 36410; 36415; 70450; 71045; 71250; 74176; 76937; 80048; 80053; 80061; 81001; 82570; 82948; 83036; 83605; 83735; 84100; 84133; 84145; 84156; 84300; 84439; 84443; 84540; 84550; 84560; 85025; 85610; 87040; 87077; 87081; 87088; 87186; 87502; 87503; 87811; 92508; 92616; 93005; 97110; 97162; 97530; 99285; A4615; A5200; A6209; A6212; A6213; A6250; A6449; C1751; C1758; G0378; J0456; J0696; J1644; J1815; J2185; J2270; J2405; J3490; J7030; J7040; J7070; J7120; J7512